=== PATIENT | female | born 1990 | race Two or more races ===

== ENCOUNTER 2018-06-26 13:05 | Emergency (ER) | payer SELFPAY ==
[~2018-06-26] VITALS: Ht 157.5 cm; Wt 68.0 kg
[2018-06-26 13:29] VITALS: BP 116/77
[2018-06-26] MEDS ORDERED: FLUCONAZOLE 150MG TABLET PO ONE (15:30)
[2018-06-26] MEDS ORDERED: FLUCONAZOLE 150MG TABLET PO NR (15:30)
== END 2018-06-26 15:40 | disposition home or self-care (01) ==
LOC: ER 13:05
DX: B37.3 Candidiasis of vulva and vagina (principal); F17.200 Nicotine dependence, unspecified, uncomplicated
CPT/HCPCS: 81025; 99283